=== PATIENT | male | born 1960 | race Caucasian/White ===

== ENCOUNTER 2022-07-13 21:18 | Inpatient (IN) | payer MEDICARE, SELFPAY ==
[2022-07-13 21:18] VITALS: BP 153/102; PULSE 123; RESP 16; TEMP 36.7; O2SAT 97; BMI 33.9
--- NOTE | 2022-07-13 21:44 | XRR_ITS ---
PROCEDURE INFORMATION: Exam: XR Chest Exam date and time: 07/13/2022 10:06 PM Age: 61 years old Clinical indication: Other: Behavioral health; Additional info: Psychiatric symptoms TECHNIQUE: Imaging protocol: Radiologic exam of the chest. Views: 1 view. COMPARISON: No relevant prior studies available. FINDINGS: Tubes, catheters and devices: Spinal stimulator device demonstrated. Lungs: Linear atelectasis at the right lung base. No consolidative pulmonary infiltrate noted. Pleural spaces: No pleural effusion. No pneumothorax. Heart/Mediastinum: No cardiomegaly. Vasculature: The thoracic aorta is atherosclerotic. Bones/joints: Acute fracture of the right 2nd posterior rib. No additional acute osseous abnormality. XR/XR chest 1V portable [id number] IMPRESSION: 1. Acute fracture of the right 2nd posterior rib. No associated pneumothorax. 2. Linear atelectasis at the right lung base. No consolidative pulmonary infiltrate noted.
--- NOTE | 2022-07-13 21:44 | ECG_ITS ---
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 Measurements Intervals [place] Rate: 124 P: 46 OK: 141 QRS: 23 QRSD: 72 T: 44 QT: 315 QTc: 453 Interpretive Statements SINUS TACHYCARDIA WITH OCCASIONAL SUPRAVENTRICULAR PREMATURE COMPLEXES No previous ECG available for comparison Electronically Signed On 07-14-2022 15:17:01 LEAF SORTER by Bon Pinedo M.D. [id number]
[2022-07-13 22:32] LABS: Basophils # 0.1 10^3/uL (0.0-0.1); Basophils % 0.5 %; Eosinophils % 0.1 %; Hematocrit 47.2 % (42.0-52.0); Hemoglobin 15.8 g/dL (11.7-16.6); Lymphocytes # 2.3 10^3/uL (0.8-4.8); Lymphocytes % 16.4 %; Mean Corpuscular HGB Conc 33.5 g/dL (30.0-36.0); Mean Corpuscular Hemoglobin 33.5 pg (28.0-34.0); Mean Platelet Volume 9.2 fL (7.4-10.4); Monocytes # 0.6 10^3/uL (0.2-0.9); Monocytes % 4.6 %; Neutrophils # 10.96 10^3/uL (1.8-7.7); Nucleated Red Blood Cells % 0 %; Platelet Count 322 10^3/cmm (130-400); Red Blood Count 4.72 10^6/uL (4.1-5.3); Red Cell Distribution Width 14.7 % (12.1-15.1); White Blood Count 14.1 10^3/uL (4.0-10.0)
[2022-07-13 22:43] LABS: SARS Covid-2 Antigen negative (Negative)
[2022-07-13 23:01] LABS: Alanine Aminotransferase 12 U/L (0-41); Albumin Level 4.3 g/dL (3.5-5.2); Alcohol Level 48 mg/dL (0-10); Alkaline Phosphatase 154 U/L (40-130); Anion Gap 21.7 (5-19); Aspartate Amino Transferase 19 U/L (0-40); Blood Urea Nitrogen 8 mg/dL (8-23); Calcium 9.8 mg/dL (8.5-10.5); Carbon Dioxide 21 mmol/L (22-29); Chloride 96 mmol/L (98-107); Glucose 90 mg/dL (65-115); Osmolality Calculated 278 mOsm/kg (285-295); Potassium 3.7 mmol/L (3.5-5.1); Salicylate 5.8 mg/dL (3-10); Sodium 135 mmol/L (136-145); Thyroid Stimulating Hormone 1.85 uIU/mL (0.27-4.20); Total Bilirubin 0.9 mg/dL (0.15-1.2); Total Protein 8.3 g/dL (6.6-8.7)
--- NOTE | 2022-07-13 23:04 | PC.NURSE ---
Pt resting quietly. In HB at this time. Continues to be calm and cooperative.
[2022-07-13 23:06] LABS: Acetaminophen < 5.0 ug/mL (10-30)
[2022-07-13 23:16] LABS: Add Urine Microscopic? YES; Bilirubin Urine Neg (Negative); Blood Urine Neg (Negative); Glucose Urine UA Norm (Normal); Ketones Urine 1+ (Negative); Leukocyte Esterase Urine 1+ (Negative); Nitrate Urine Negative (Negative); Protein Urine Trace (Negative); Urine Appearance Clear (CLEAR); Urine Color Yellow (Yellow); Urobilinogen Urine 1 mg/dL (Negative); pH Urine 5 (5-7)
[2022-07-13 23:18] LABS: Add Urine Culture? No; Amphetamines Screen Urine Negative (Negative); Bacteria Urine TRACE /hpf; Barbiturates Screen Urine Negative (Negative); Benzodiazepines Screen Urine Positive (Negative); Cocaine Screen Urine Negative (Negative); Mucus Urine 3+ /hpf; Opiate Screen Urine Negative (Negative); PCP Screen Urine Negative (Negative); RBC Urine 0-4 /hpf (0-2); Squamous Epithelial Cell Urine 0-4 /hpf (0-5); THC Screen Urine Positive (Negative)
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
[2022-07-14] VITALS (7 sets, daily range): BP systolic 116–138; BP diastolic 62–84; PULSE 128–158; RESP 16–20; TEMP 36.8–36.9; O2SAT 93–99
[2022-07-14] MEDS: LORazepam 2 mg Tablet PO ×3 (00:25→20:52)
--- NOTE | 2022-07-14 02:05 | PC.NURSE ---
Pt moved to room 7. Items removed from room. Tech placed for 1-1 sitter.
[2022-07-14] MEDS: OLANZapine 5 mg ODT PO (03:59)
--- NOTE | 2022-07-14 08:06 | PC.NURSE ---
pt states he is no longer SI, states he had a hard day yesterday but is not having active suicidal thoughts. pt is calm and appropriate
--- NOTE | 2022-07-14 08:07 | PC.NURSE ---
Administered Gabapentin 300MG 3 tabs from pts home medication in belongings bag per physician Navarro
[2022-07-14 09:41] LABS: Adenovirus Not Detected (NOT DETECT); Chlamydia Pneumoniae Not Detected (NOT DETECT); Coronavirus 229E,HKU1,NL63,OC4 Not Detected (NOT DETECT); Human Metapneumovirus Not Detected (NOT DETECT); Human Rhinovirus/Enterovirus Not Detected (NOT DETECT); Influenza A Not Detected (NOT DETECT); Influenza A H1 Not Detected (NOT DETECT); Influenza A H1-2009 Not Detected (NOT DETECT); Influenza A H3 Not Detected (NOT DETECT); Influenza B Not Detected (NOT DETECT); Mycoplasma Pneumoniae Not Detected (NOT DETECT); Parainfluenza Virus Type 1 Not Detected (NOT DETECT); Parainfluenza Virus Type 2 Not Detected (NOT DETECT); Parainfluenza Virus Type 3 Not Detected (NOT DETECT); Parainfluenza Virus Type 4 Not Detected (NOT DETECT); Respiratory Syncytial Virus A Not Detected (NOT DETECT); Respiratory Syncytial Virus B Not Detected (NOT DETECT); SARS-COV-2 Not Detected (NOT DETECT)
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
[2022-07-14] MEDS: gabapentin 300 mg Capsule 900 MG PO (20:53)
[2022-07-14] MEDS: trazodone 50 mg Tablet PO (21:15)
[2022-07-14] MEDS: loperamide 2 mg Capsule PO (22:10)
[2022-07-15 06:00] VITALS: BP 123/75; PULSE 153; RESP 18; TEMP 37.1; O2SAT 96
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
[2022-07-15] MEDS: gabapentin 300 mg Capsule 900 MG PO ×3 (08:36→21:04)
[2022-07-15] MEDS: folic acid 1 mg Tablet PO (08:36)
[2022-07-15] MEDS: thiamine 100 mg Tablet PO (08:36)
[2022-07-15] MEDS: multivitamin therapeutic Tablet 1 TAB PO (08:36)
[2022-07-15] MEDS: LORazepam 2 mg Tablet PO (08:42)
--- NOTE | 2022-07-15 09:23 | ECG_ITS ---
[facility] Test Date: 2022-07-15 Pat Name: Obey Regan Department: Room: 154 Gender: Male Signaling Project Engineer: : 1960 Requested By: Jace Peck Order Number: [id number] Kathy MD: Bon Pinedo M.D. Measurements Intervals [place] Rate: 143 P: 48 [place]: 125 QRS: 19 QRSD: 74 T: 45 QT: 272 QTc: 421 Interpretive Statements SINUS TACHYCARDIA Compared to ECG 07/13/2022 22:15:27 No significant changes Electronically Signed On 07-15-2022 17:30:19 PEANUT PICKER by Bon Pinedo M.D. [id number]
--- NOTE | 2022-07-15 09:48 | PM.CONSULT ---
Providers/Reason For Consult Consulting Physician/Specialty*: Jace Osorio MD, hospitalist Reason for Consult*: Tachycardia Requesting Physician: Dr. Kc Attending Physician: Sriram Kc MD History of Present Illness History of Present Illness Obey Regan is a 61 year old male who presented to the emergency department on the , with suicidal ideation. He admitted to drinking quite a bit of alcohol. He reports he feels weak. He states he has a cough on occasion, and can occasionally feel shortness of breath. He has not had any chest discomfort. Heart rate was 120s on admission, and there was concern it was 153 this morning on vitals. Patient denies any palpitations. He reports no leg pain. He reports no fevers. He was found to have a rib fracture on admission that patient was not aware of. Review of Systems General: Reports: 10 or more systems reviewed and unremarkable except in HPI and below Const: Reports: malaise; Denies: fever(s) Eyes: Denies: change in vision ENMT: Denies: throat pain Card: Denies: chest pain or palpitations Resp: Reports: dyspnea and productive cough GI: Reports: diarrhea; Denies: abdominal pain : Denies: flank pain Musc: Denies: neck pain Skin/Breast: Denies: rash Neuro: Denies: headache(s) Psych: Reports: anxiety and depression Endo: Denies: polyuria Jose/Lymph: Denies: easy bruising All/Imm: Denies: urticaria Medications/Allergies Home Medications Medication Instructions Recorded Confirmed Last Taken Type [id number]-[id number]-[id number] 250 2 tab PO Q6H PRN Headache 07/14/22 07/14/22 Unknown History mg-250 mg-65 mg tablet (Excedrin Migraine) gabapentin 300 mg capsule 900 mg PO TID 07/14/22 07/14/22 Unknown History Allergies Allergy/AdvReac Type Severity Reaction Status Date / Time No Known Allergies Allergy Verified 07/14/22 02:36 Current Medications Generic Name Dose Route Start Last Admin Trade Name Freq PRN Reason Stop Dose Admin Folic Acid 1 mg 07/15/22 09:00 07/15/22 08:36 Folic Acid 1 Mg Tablet PO 1 mg DAILY SHONNA Administration Gabapentin 900 mg 07/14/22 21:00 07/15/22 08:36 Gabapentin 300 Mg Capsule PO 900 mg TID SHONNA Administration Loperamide HCl 2 mg 07/14/22 02:35 07/14/22 22:10 Loperamide 2 Mg Capsule PO 2 mg Q6H PRN Administration DIARRHEA Lorazepam 2 mg 07/14/22 20:17 07/15/22 08:42 Lorazepam 2 Mg Tablet PO 2 mg PROTOCOL PRN Administration WITHDRAWAL Protocol Multivitamins Therapeutic 1 tab 07/15/22 09:00 07/15/22 08:36 Multivitamin Therapeutic Tablet PO 1 tab DAILY SHONNA Administration Olanzapine 5 mg 07/14/22 02:35 07/14/22 03:59 Olanzapine 5 Mg Odt PO 5 mg Q4H PRN Administration Agitation/Psychosis Thiamine Mononitrate 100 mg 07/15/22 09:00 07/15/22 08:36 Thiamine 100 Mg Tablet PO 100 mg DAILY SHONNA Administration Trazodone HCl 50 mg 07/14/22 02:35 07/14/22 21:15 Trazodone 50 Mg Tablet PO 50 mg BEDTIME PRN Administration SLEEP PFSH Acute PFSH: Medical History (Updated 07/15/22 @ 09:58 by Jace Osorio MD) Chronic neuropathic pain Family History (Updated 07/15/22 @ 09:54 by Jace Osorio MD) Other CAD (coronary artery disease) Social History (Updated 07/15/22 @ 09:55 by Jace Osorio MD) Smoking and tobacco status: current every day smoker Alcohol intake: current Other PFSH information: Supplemental PFSH Information: History of nerve stimulator implantation Vitals/I&O/Wt Last Vital Signs Temp 98.7 F 07/15/22 06:00 Pulse 153 H 07/15/22 06:00 Resp 18 07/15/22 06:00 BP 123/75 07/15/22 06:00 Pulse Ox 96 07/15/22 06:00 O2 Del Method 07/14/22 18:34 Weight last 48 hrs Weight 113.398 kg Physical Exam Narrative: General exam is a white male, no distress HEENT: Atraumatic normocephalic. Oropharynx clear. Mucous membranes dry. Neck supple no lymphadenopathy thyromegaly Cardiovascular tachycardic, no murmur Lungs coarse breath sounds at the base, particularly right lung Abdomen is soft, positive bowel sounds. No obvious organomegaly exam is deferred Extremities no cyanosis clubbing or edema. Some varicosities are noted, more on the left Skin no rash Neuro no obvious focal deficits Data 07/13/22 21:45 07/13/22 21:45 Other Labs: Chest x-ray which I reviewed from admission demonstrates fracture right second posterior rib and some linear atelectasis/infiltrate EKG I had performed currently demonstrates a heart rate of around 140, normal axis. This is consistent with sinus tachycardia. LFTs on admission largely normal with exception of alk phos of 154. TSH was checked and 1.85 Urinalysis 5-10 whites, 0-4 reds. Negative nitrates and trace bacteria Urine drug screen was positive for THC, benzodiazepines. Alcohol level 48 Viral panel including COVID-negative A&P Assessment and plan (1) Tachycardia: Concern of tachycardia. Certainly this could be from withdrawal, although his blood pressure is not elevated currently. He has some element of dehydration and was self reports he has not been drinking well since being admitted. I am also concerned with development of pneumonia as the patient had a right posterior rib fracture and currently has an abnormal pulmonary exam with coarse breath sounds on the right. He has not demonstrated any fevers. He is not hypoxic With his chronic neuropathy, and presumably reduced mobility, will need to explore any possibility of thrombus as well. He has not had any chest discomfort, and is not hypoxic. He is not hypotensive. At this point I will order chest x-ray as well as stat laboratory. Laboratory will include CBC, CMP, dimer. Hopefully this can be expedited quickly as it is ordered stat. Encourage p.o. intake from the patient Recheck vital signs as soon as laboratory comes in, sooner for any decompensation After the above is evaluated expeditiously, will determine if patient can continue to be cared for at the neuropsychiatric unit. Plan Thank you for this consultation Consult Attestations Medical Necessity Statement: As per primary Diagnoses Tachycardia R00.0 Time Spent (min) 49
--- NOTE | 2022-07-15 09:52 | XR_ITS ---
WS: [id number] Portable AP by chest, 07/15/2022 Clinical Data: abnormal vital signs Comparison: None. Findings: There is patchy opacity over the surface the left diaphragm which may represent atelectasis and/or minimal pneumonia. The linear atelectasis in the right lung has almost totally resolved. No n odules, masses or effusions are seen. The heart is normal. The pulmonary vascularity is not increased . No pneumothorax is seen. The aortic arch and descending thoracic aorta show minimal calcification a nd tortuosity. There are epidural stimulator leads overlying the lower thoracic space. The right seco nd rib fracture is obscured by overlying bone. XR/XR chest 1V portable [id number] Impression: 1. Development of patchy opacity in left lower lobe which could represent atele ctasis and/or pneumonia. 2. Atherosclerosis.
[2022-07-15 10:35] LABS: Basophils # 0.1 10^3/uL (0.0-0.1); Basophils % 0.6 %; Eosinophils # 0.1 10^3/uL (0.0-0.8); Eosinophils % 0.7 %; Hematocrit 40.9 % (42.0-52.0); Hemoglobin 13.8 g/dL (11.7-16.6); Lymphocytes % 21.6 %; Mean Corpuscular HGB Conc 33.7 g/dL (30.0-36.0); Mean Corpuscular Hemoglobin 34.2 pg (28.0-34.0); Mean Corpuscular Volume 101.5 fl (80-94); Monocytes # 0.7 10^3/uL (0.2-0.9); Monocytes % 7.9 %; Neutrophils # 6.45 10^3/uL (1.8-7.7); Neutrophils % 68.8 %; Nucleated Red Blood Cells % 0 %; Platelet Count 215 10^3/cmm (130-400); Red Blood Count 4.03 10^6/uL (4.1-5.3); Red Cell Distribution Width 14.6 % (12.1-15.1); White Blood Count 9.4 10^3/uL (4.0-10.0)
[2022-07-15 10:37] LABS: D Dimer 2.49 ug/mIFEU (0-0.59)
[2022-07-15 10:43] LABS: Alanine Aminotransferase < 5 U/L (0-41); Albumin Level 3.2 g/dL (3.5-5.2); Alkaline Phosphatase 112 U/L (40-130); Anion Gap 14.7 (5-19); Aspartate Amino Transferase 13 U/L (0-40); Blood Urea Nitrogen 12 mg/dL (8-23); Calcium 8.9 mg/dL (8.5-10.5); Carbon Dioxide 25 mmol/L (22-29); Chloride 100 mmol/L (98-107); Globulin 3.5 g/dL (1.3-4.6); Glomerular Filtration Rate 98.6 mL/min (90-130); Glucose 118 mg/dL (65-115); Magnesium 1.7 mg/dL (1.7-2.3); Osmolality Calculated 283 mOsm/kg (285-295); Potassium 3.7 mmol/L (3.5-5.1); Sodium 136 mmol/L (136-145); Total Bilirubin 0.8 mg/dL (0.15-1.2); Total Protein 6.7 g/dL (6.6-8.7)
[2022-07-15 11:08] VITALS: BP 136/77; PULSE 117; RESP 18; TEMP 36.8; O2SAT 90
--- NOTE | 2022-07-15 11:19 | CT_ITS ---
WS: [id number] CT CHEST ANGIOGRAPHY WITH REFORMATS HISTORY: elevated dimer TECHNIQUE: Contiguous axial images are obtained through the chest during arterial injection of intrav enous contrast. Images are reconstructed to evaluate the pulmonary arteries. MIP imaging also reviewe d. All CT scans at [facility] use at least one of these dose optimization techniques: automat ed exposure control; mA and/or kV adjustment per patient size (includes targeted exams where dose is matched to clinical indication); or iterative reconstruction. CONTRAST: Omnipaque 350; 190 mL IV. DLP: 160.60 mGy.cm COMPARISON: None available. Limited but adequate central opacification of the pulmonary arteries. Nonocclusive thrombus proximal RIGHT lower lobe pulmonary artery with extension into the segmental branches. No occlusive thrombus. Pulmonary artery is mildly dilated. Mild atherosclerosis aorta. Scattered calcifications and intimal thickening. No RIGHT heart strain. Mild enlargement of the heart. Small pericardial effusion versus pericardial thickening. Small medias tinal and hilar lymph nodes. Mild diffuse thickening of the esophagus. No pneumonia or pulmonary nodu les. Subsegmental atelectasis at the lingula and RIGHT lung base. No pleural effusion. Nodular surface of the liver consistent with cirrhosis. Mildly contracted gallbladder with cholelithi asis. LEFT adrenal low-attenuation nodule measures 2.0 cm. Mild adjacent inflammation involving the s uperior poles of each kidney. Dorsal column stimulator midthoracic region. CT/CT angio chest PE protcl [id number] IMPRESSION: 1. Nonocclusive thrombus RIGHT lower lobe pulmonary artery. 2. No pneumonia. 3. Mild cardiomegaly. 4. Small pericardial effusion. 5. LEFT adrenal adenoma. 6. Perinephric stranding around the superior pole of each kidney. 7. Mild diffuse esophagitis. 8. Cirrhosis. Notified Jace Osorio MD at 07/15/2022 1:02 PM.
[2022-07-15] MEDS: iohexol 350 mg/mL 500 mL Btl (per mL) IV (12:15)
[2022-07-15] MEDS: enoxaparin 120 mg/0.8 mL Syringe 110 MG SUBCUT (14:00)
[2022-07-15] MEDS: levofloxacin-dextrose 5 % 750 MG/150 ML PREMIX 100 MG IV (14:00)
[2022-07-15 16:00] VITALS: BP 134/85; PULSE 120; RESP 18; TEMP 37.2; O2SAT 95
[2022-07-15] MEDS: OLANZapine 5 mg ODT PO (17:42)
[2022-07-15 20:00] VITALS: BP 131/68; PULSE 127; RESP 16; TEMP 37.2; O2SAT 90
[2022-07-15] MEDS: hyDROXYzine 25 mg Capsule 50 MG PO (21:05)
[2022-07-15] MEDS: trazodone 50 mg Tablet PO (21:05)
[2022-07-15 22:00] VITALS: PULSE 126
--- NOTE | 2022-07-15 23:15 | PC.NURSE ---
Bedside report completed with MARIANO Coronado at beginning of shift.
[2022-07-16] VITALS (13 sets, daily range): BP systolic 118–185; BP diastolic 64–89; PULSE 72–125; RESP 15–18; TEMP 36.7–37.3; O2SAT 91–98
[2022-07-16] MEDS: enoxaparin 120 mg/0.8 mL Syringe 110 MG SUBCUT ×2 (01:06→14:19)
[2022-07-16] MEDS: nicotine 21 mg Patch 1 PATCH TRANSDERMA (01:24)
[2022-07-16 04:52] LABS: Basophils # 0.1 10^3/uL (0.0-0.1); Basophils % 0.6 %; Eosinophils # 0.2 10^3/uL (0.0-0.8); Eosinophils % 2.2 %; Hematocrit 40.1 % (42.0-52.0); Hemoglobin 13.1 g/dL (11.7-16.6); Lymphocytes # 2.5 10^3/uL (0.8-4.8); Lymphocytes % 28.5 %; Mean Corpuscular HGB Conc 32.7 g/dL (30.0-36.0); Mean Corpuscular Hemoglobin 33.2 pg (28.0-34.0); Mean Corpuscular Volume 101.5 fl (80-94); Monocytes # 0.6 10^3/uL (0.2-0.9); Monocytes % 7.2 %; Neutrophils # 5.25 10^3/uL (1.8-7.7); Neutrophils % 60.9 %; Nucleated Red Blood Cells % 0 %; Platelet Count 213 10^3/cmm (130-400); Red Blood Count 3.95 10^6/uL (4.1-5.3); Red Cell Distribution Width 14.6 % (12.1-15.1); White Blood Count 8.6 10^3/uL (4.0-10.0)
[2022-07-16 05:13] LABS: Blood Urea Nitrogen 10 mg/dL (8-23); Calcium 9.1 mg/dL (8.5-10.5); Carbon Dioxide 27 mmol/L (22-29); Chloride 100 mmol/L (98-107); Glucose 107 mg/dL (65-115); Magnesium 1.8 mg/dL (1.7-2.3); Osmolality Calculated 286 mOsm/kg (285-295); Sodium 138 mmol/L (136-145)
--- NOTE | 2022-07-16 05:22 | PC.NURSE ---
Patient c/o upper chest and neck pain. Dr. Osorio notified. Ordered to give PRN Tylenol.
[2022-07-16] MEDS: acetaminophen 325 mg Tablet 650 MG PO (05:24)
--- NOTE | 2022-07-16 06:05 | PC.NURSE ---
Patient currently sleeping with eyes closed. Will continue to monitor and reassess pain.
--- NOTE | 2022-07-16 06:19 | P.PN_ITS ---
Subjective Subjective: Patient reports some pain when he breathes deep. Otherwise without complaints. Heart rate this morning around 110-115, improved from yesterday. He does not complain of shortness of breath at rest. He is not requiring oxygen. Medications: Reviewed: Yes Vitals/I&O/Wt Last Vital Signs Temp 99 F 07/16/22 04:00 Pulse 125 H 07/16/22 04:00 Resp 17 07/16/22 04:00 BP 144/87 07/16/22 04:00 Pulse Ox 94 07/16/22 04:00 O2 Del Method 07/16/22 02:52 07/15/22 07/15/22 07/16/22 14:59 22:59 06:59 Intake Total 150 / 150 800 / 950 Output Total 1000 / 1000 Balance 150 / 150 -200 / -50 Physical Exam Narrative: General exam is a white male, no distress Neck supple no lymphadenopathy thyromegaly Cardiovascular tachycardic, no murmur Lungs coarse breath sounds at the base, particularly right lung Abdomen is soft, positive bowel sounds. No obvious organomegaly Extremities no cyanosis clubbing or edema. Some varicosities are noted, more on the left Skin no rash Data 07/16/22 04:19 07/16/22 04:19 Other Labs: Chest x-ray demonstrated left-sided infiltrate yesterday which I reviewed CTA demonstrated atelectasis, less likely pneumonia, nonocclusive thrombus right lower lobe pulmonary artery, other findings as noted in the report A&P Assessment and plan (1) Tachycardia: Concern of tachycardia. Certainly this could be from withdrawal, although his blood pressure is not elevated currently. He has some element of dehydration and was self reports he has not been drinking well since being admitted. I am also concerned with development of pneumonia as the patient had a right posterior rib fracture and currently has an abnormal pulmonary exam with coarse breath sounds on the right. He has not demonstrated any fevers. He is not hypoxic With his chronic neuropathy, and presumably reduced mobility, will need to explore any possibility of thrombus as well. He has not had any chest discomfo rt, and is not hypoxic. He is not hypotensive. At this point I will order chest x-ray as well as stat laboratory. Laboratory will include CBC, CMP, dimer. Hopefully this can be expedited quickly as it is ordered stat. Patient was removed from neuropsychiatric unit on July 15, with abnormal v ital signs and CTA pending. He was found to have a pulmonary embolism on CTA. I am still concerned pneumonia might be present although CT believes this is more than likely atelectasis. (2) Pulmonary embolism: Continue Lovenox Monitor for vital signs to return to normal Await echocardiogram to check for any evidence of strain With significant clinical improvement, will consider transition to Eliquis soon. This might happen tonight or tomorrow morning Repeat CBC tomorrow along with CMP (3) Pneumonia: Continue Levaquin currently (4) Alcohol withdrawal: Continue CIWA protocol Plan Suicidal ideation. Psychiatric on board. One-to-one sitter Attestations Medical Necessity Statement*: Needs continued hospitalization for treatment of pulmonary embolism with anticoagulation Diagnoses Tachycardia R00.0 Pulmonary embolism I26.99 Pneumonia J18.9 Alcohol withdrawal F10.939 Time Spent (min) 25
[2022-07-16] MEDS: ipratropium-albuterol 3 mL Neb INHALATION ×3 (08:08→20:46)
[2022-07-16] MEDS: thiamine 100 mg Tablet PO (09:47)
[2022-07-16] MEDS: gabapentin 300 mg Capsule 900 MG PO ×3 (09:47→19:21)
[2022-07-16] MEDS: folic acid 1 mg Tablet PO (09:47)
[2022-07-16] MEDS: multivitamin therapeutic Tablet 1 TAB PO (09:47)
--- NOTE | 2022-07-16 13:12 | USCV_ITS ---
Obey Regan Age: 61 Gender: M : 1960 Exam Date: 07/16/2022 17:12 Ordering Phys: Jace Osorio MD Technologist: DEN [place] [facility] [place]: PE BP: 128 / 64 HR: 106 Rhythm: Sinus Technical Quality: Poor secondary to COPD MEASUREMENTS (Male / Female) Normal Values 2D ECHO LVOT Diameter 2.0 cm LV Ejection Fraction MOD 2C 54.3 % LV Ejection Fraction 2C AL 53.9 % LA Diameter 3.8 cm LA Width 3.1 cm LA Height 5.4 cm RA Width 3.0 cm RA Height 5.4 cm Aorta at Sinotubular Diameter 2.8 cm IVC Diameter 2.2 cm M-MODE Aortic Annulus Diameter 3.1 cm LA Ao Ratio MM 1.2 MV E Point Septal Separation 0.6 cm DOPPLER AV Peak Velocity 132.0 cm/s LVOT Peak Velocity 111.0 cm/s AV Area Cont Eq vti 3.1 cm squared AV Area Cont Eq pk 2.7 cm squared MV Peak Velocity 115.0 cm/s MV Area PHT 5.0 cm squared Mitral E to A Ratio 0.4 MV E' Velocity 26.0 cm/s Mitral E to MV E' Ratio 5.4 Mitral E to LV E' Lateral Ratio 5.6 Mitral E to LV E' Septal Ratio 5.2 TR Peak Velocity 167.1 cm/s TR Peak Gradient 11.2 mmHg TR Mean Velocity 142.7 cm/s TR Mean Gradient 8.1 mmHg TR Velocity Time Integral 32.7 cm TV Peak E Velocity 43.0 cm/s Right Atrial Pressure 3.0 mmHg Pulmonary Artery Systolic Pressu 14.2 mmHg PV Peak Velocity 113.0 cm/s RV Acceleration Time 0.1 s RV Ejection Time 0.2 s RV AcT/ET 0.5 FINDINGS Left Ventricle Normal left ventricular size and systolic function, EF 59 %. Segmental wall motion analysis difficult. No gross abnormalities noted.Grade I/IV diastolic dysfunction (abnormal relaxation filling pattern), normal to mildly elevated filling pressures. Right Ventricle The right ventricle possibly of normal size and ejection fraction Right Atrium Right atrium not well visualized. Left Atrium Possibly of normal size Mitral Valve The valve morphology could not be delineated well Aortic Valve The valve morphology could not be delineated well Tricuspid Valve Trace tricuspid valve regurgitation. Possibly normal PA pressure Pulmonic Valve Pulmonic valve not well visualized. Pericardium No significant pericardial effusion Aorta Normal aortic annulus size. IVC Inferior vena cava not visualized. CONCLUSIONS Normal left ventricular size and systolic function, EF 59 %. Segmental wall motion analysis difficult. No gross abnormalities noted. Grade I/IV diastolic dysfunction (abnormal relaxation filling pattern), normal to mildly elevated filling pressures. Possibly normal chamber sizes Right ventricle appears to be normal size ejection fraction. Could not be visualized well. No significant pericardial effusion. Technically difficult study because of poor ultrasonic window Dr Melchor Gold MD FACC (Electronically Signed) Final Date: 18 July 2022 10:05 S
[2022-07-16] MEDS: levofloxacin-dextrose 5 % 750 MG/150 ML PREMIX 100 MG IV (14:19)
[2022-07-16] MEDS: oxyCODONE 5 mg IR Tab/Cap PO (16:05)
[2022-07-16] MEDS: nicotine 2 mg Gum BUCCAL (16:11)
--- NOTE | 2022-07-16 16:32 | P.NPUPN_ITS ---
Subjective NPU Subjective: Patient presented today reporting that he is doing better with the medications and treatments he is receiving. He was very thankful and appreciative of the care he received. He reports that he had not been taking p.o. but did not really attribute it to anything. He does understand he had br oken ribs, and pneumonia and a PE. We discussed the fact that he would stay on the floor until he was medically cleared by the primary medical team on [facility]. Then he would return to the neuropsychiatric unit. He denies any side effects from these medications. Mental Status Exam MSE Comments: This is a obese older white male in hospital gown with adequate grooming and eye contact. No abnormal movements except for mild psychomotor retardation. Notable swelling in his left lower leg without any swelling in the right leg. Cooperative with exam in mild distress. Speech was decreased rate and volume. Mood described as a lot better. Affect congruent. Thought process organized. Thought content: Patient denied current suicidal or homicidal ideation, there were no delusions reported or noted, he denied any auditory or visual hallucinations. Attention and concentration were intact and memory appeared mostly reliable but none were formally tested. He is alert and oriented x3. Insight and judgment limited impulse control limited. Vitals/I&O/Wt Last Vital Signs Temp 98.0 F 07/16/22 16:31 Pulse 112 H 07/16/22 16:31 Resp 15 07/16/22 16:31 BP 128/64 07/16/22 16:31 Pulse Ox 96 07/16/22 16:31 O2 Del Method 07/16/22 16:31 07/16/22 07/16/22 07/17/22 14:59 22:59 06:59 Intake Total 0 / 0 Output Total Balance 0 / 0 Data NPU 07/17/22 05:30 07/17/22 05:30 Micro: Microbiology 07/15/22 21:16 Gram Stain - Final Sputum - Expectorated Sputum Microbiology 07/15/22 21:16 Sputum - Expectorated Sputum Gram Stain - Final A&P Assessment and plan (1) Alcohol use disorder, severe, dependence: (2) Alcohol withdrawal: (3) Depressive disorder: (4) Anxiety disorder: Plan This is a 66 alcohol use and anxiety and a more recent history of depression and suicidal thinking who presents with suicidal thoughts and some lab abnormalities including elevated pulse in the face of normal blood pressure. 1. Continue current medication. Start Lexapro 10 mg p.o. every morning. 2. Initiate/continue CIWA protocol. 3. Continue one-to-one while on MedSurg. 4. Return to NPU once medically cleared 5. We will continue to follow. 6. Encourage sober living treatment after discharge at the highest level of care to which he is willing to commit. Involuntary Hold Information 96 Hour Hold: 96 Hour Involuntary Admission: No Attestations NPU Medical Necessity Statement*: Inpatient hospitalization is medically necessary and the clinically appropriate intervention at this time. We will initiate/monitor medications and make changes as indicated. Likely length of stay 3-5 days. Coding Level of Care Code Acute Code for [facility] Fwd Diagnoses Alcohol use disorder, severe, dependence F10.20 Alcohol withdrawal F10.939 Depressive disorder F32.A Anxiety disorder F41.9
[2022-07-16] MEDS: hyDROXYzine 25 mg Capsule 50 MG PO (19:20)
[2022-07-17] VITALS (9 sets, daily range): BP systolic 124–157; BP diastolic 74–89; PULSE 88–115; RESP 14–20; TEMP 36.6–37.1; O2SAT 91–95
[2022-07-17] MEDS: enoxaparin 120 mg/0.8 mL Syringe 110 MG SUBCUT (02:02)
[2022-07-17 06:04] LABS: Basophils % 0.5 %; Eosinophils # 0.3 10^3/uL (0.0-0.8); Eosinophils % 4.2 %; Hematocrit 39.3 % (42.0-52.0); Hemoglobin 12.8 g/dL (11.7-16.6); Lymphocytes # 1.9 10^3/uL (0.8-4.8); Lymphocytes % 25.7 %; Mean Corpuscular HGB Conc 32.6 g/dL (30.0-36.0); Mean Corpuscular Hemoglobin 32.9 pg (28.0-34.0); Monocytes # 0.5 10^3/uL (0.2-0.9); Monocytes % 7.1 %; Neutrophils # 4.64 10^3/uL (1.8-7.7); Neutrophils % 62.2 %; Nucleated Red Blood Cells % 0 %; Platelet Count 208 10^3/cmm (130-400); Red Blood Count 3.89 10^6/uL (4.1-5.3); Red Cell Distribution Width 14.6 % (12.1-15.1); White Blood Count 7.5 10^3/uL (4.0-10.0)
[2022-07-17 06:29] LABS: Alanine Aminotransferase 7 U/L (0-41); Albumin Level 3.2 g/dL (3.5-5.2); Alkaline Phosphatase 115 U/L (40-130); Anion Gap 14.2 (5-19); Aspartate Amino Transferase 15 U/L (0-40); Blood Urea Nitrogen 10 mg/dL (8-23); Calcium 8.8 mg/dL (8.5-10.5); Carbon Dioxide 28 mmol/L (22-29); Chloride 101 mmol/L (98-107); Globulin 3.3 g/dL (1.3-4.6); Glucose 124 mg/dL (65-115); Osmolality Calculated 288 mOsm/kg (285-295); Potassium 4.2 mmol/L (3.5-5.1); Sodium 139 mmol/L (136-145); Total Bilirubin 0.4 mg/dL (0.15-1.2); Total Protein 6.5 g/dL (6.6-8.7)
[2022-07-17] MEDS: ipratropium-albuterol 3 mL Neb INHALATION ×2 (08:32→13:38)
[2022-07-17] MEDS: escitalopram 10 mg Tablet PO (09:44)
[2022-07-17] MEDS: folic acid 1 mg Tablet PO (09:44)
[2022-07-17] MEDS: multivitamin therapeutic Tablet 1 TAB PO (09:45)
[2022-07-17] MEDS: thiamine 100 mg Tablet PO (09:45)
[2022-07-17] MEDS: gabapentin 300 mg Capsule 900 MG PO ×3 (09:46→21:28)
[2022-07-17] MEDS: nicotine 21 mg Patch 1 PATCH TRANSDERMA (09:53)
[2022-07-17] MEDS: oxyCODONE 5 mg IR Tab/Cap PO (09:53)
--- NOTE | 2022-07-17 11:22 | P.PN_ITS ---
Subjective Subjective: States he is still coughing, can have some phlegm. He is now finally able to take deeper breaths which he says was unable to do previously. Medications: Reviewed: Yes Vitals/I&O/Wt Last Vital Signs Temp 97.8 F 07/17/22 08:00 Pulse 101 H 07/17/22 08:33 Resp 18 07/17/22 08:33 BP 154/85 07/17/22 08:00 Pulse Ox 95 07/17/22 08:33 O2 Del Method 07/17/22 08:33 07/16/22 07/17/22 07/17/22 22:59 06:59 14:59 Intake Total 270 / 270 360 / 630 240 / 240 Output Total 200 / 200 Balance 270 / 270 160 / 430 240 / 240 Physical Exam Const: COMMON NORMALS: patient oriented x3 and alert GENERAL APPEARANCE: cooperative ORIENTATION/CONSCIOUSNESS: Yes awake HENMT: COMMON NORMALS: oropharynx normal Neck/C-Spine: COMMON NORMALS: no JVD Resp: COMMON NORMALS: normal respiratory effort AUSCULTATION: rhonchi Cardio: COMMON NORMALS: no JVD, regular rhythm, S1 normal heart sound present, S2 normal heart sound present and No murmurs present (Cardio) RHYTHM: regular rhythm HEART SOUNDS: S1 normal heart sound present and S2 normal heart sound present GI: COMMON NORMALS: Normal to inspection, nondistended, normoactive bowel sounds present, Soft to palpation and non-tender PALPATION: Yes Soft to palpation Extremity: COMMON NORMALS: no joint enlargement and no pedal edema Neuro: COMMON NORMALS: patient oriented x3 and moves all extremities SENSO RIUM/ORIENTATION: Yes alert Skin: COMMON NORMALS: no rashes or lesions noted GENERAL SKIN EXAM: no rashes or lesions noted Data 07/17/22 05:30 07/17/22 05:30 Micro: Microbiology 07/15/22 21:16 Gram Stain - Final Sputum - Expectorated Sputum A&P Assessment and plan (1) Tachycardia: Continue treatment of PE, pneumonia. (2) Pulmonary embolism: Has not had any bleeding. Reviewed CBC, patient is tolerating anticoagulation well. Hemoglobin 12.8. Platelets noted 208,000. Maintaining blood pressure well, maintaining oxygenation on room air. Transition to oral anticoagulant. Discussed with psychiatry, will resume care on neuropsychiatric unit. I will follow-up and see him then again tomorrow. Echo still pending. Follow-up. (3) Pneumonia: Switch to oral Levaquin. Add flutter valve to assist with expectoration. Noted WBC count 7.5. He is afebrile. Heart rate with improvement, 101. (4) Alcohol withdrawal: Continue CIWA protocol Plan Suicidal ideation. Discussed with psychiatry, transfer back to neuropsychiatric unit to resume care there. Continue one-to-one sitter Attestations Medical Necessity Statement*: Continue psychiatric care assessment management with suicidal ideation, continued treatment of PE, pneumonia. Diagnoses Tachycardia R00.0 Pulmonary embolism I26.99 Pneumonia J18.9 Alcohol withdrawal F10.939
[2022-07-17] MEDS: sucralfate 1 gm Tablet PO (11:45)
[2022-07-17] MEDS: apixaban 5 mg Tablet 10 MG PO (17:30)
[2022-07-17] MEDS: levoFLOXacin 750 mg Tablet PO (17:30)
--- NOTE | 2022-07-17 17:51 | P.NPUPN_ITS ---
Subjective NPU Subjective: Patient presented today reporting that things were going much better. The hospitalist team on [facility] has medically cleared him and is changing him over to oral medications that will be consistent with neuropsychiatric unit placement. He reports that he is hoping to be discharged by Friday in hopes that he can be helpful to his family as well as his intention of coming down to [place]. He denies any problems with any of the medications and reports he is feeling much better after treatment for the pneumonia and the PE. Mental Status Exam MSE Comments: This is a obese older white male in hospital gown with adequate grooming and eye contact. No abnormal movements except for mild psychomotor retardation. Notable swelling in his left lower leg without any swelling in the right leg. Cooperative with exam in no acute distress. Speech was decreased rate and volume. Mood described as better. Affect congruent. Thought process organized. Thought content: Patient denied current suicidal or homicidal ideation, there were no delusions reported or noted, he denied any auditory or visual hallucinations. Attention and concentration were intact and memory appeared mostly reliable but none were formally tested. He is alert and oriented x3. Insight and judgment limited impulse control limited. Vitals/I&O/Wt Last Vital Signs Temp 97.9 F 07/17/22 20:00 Pulse 100 07/17/22 20:00 Resp 17 07/17/22 20:00 BP 157/89 07/17/22 20:00 Pulse Ox 94 07/17/22 20:00 O2 Del Method 07/17/22 20:00 07/17/22 07/17/22 07/18/22 14:59 22:59 06:59 Intake Total 440 / 440 Balance 440 / 440 Data NPU 07/17/22 05:30 07/17/22 05:30 Micro: Microbiology 07/15/22 21:16 Gram Stain - Final Sputum - Expectorated Sputum Sputum Culture - Preliminary Microbiology 07/15/22 21:16 Sputum - Expectorated Sputum Gram Stain - Final 07/15/22 21:16 Sputum - Expectorated Sputum Sputum Culture - Preliminary A&P Assessment and plan (1) Alcohol use disorder, severe, dependence: (2) Alcohol withdrawal: (3) Depressive disorder: (4) Anxiety disorder: Plan This is a 66 alcohol use and anxiety and a more recent history of depression and suicidal thinking who presents with suicidal thoughts and some lab abnormalities including elevated pulse in the face of normal blood pressure. 1. Continue current medication. Started Lexapro 10 mg p.o. every morning. 2. Initiate/continue CIWA protocol. 3. Continue one-to-one while on MedSurg. 4. Return to NPU once medically cleared 5. We will continue to follow. 6. Encourage sober living treatment after discharge at the highest level of care to which he is willing to commit. Involuntary Hold Information 96 Hour Hold: 96 Hour Involuntary Admission: No Attestations NPU Medical Necessity Statement*: Inpatient hospitalization is medically necessary and the clinically appropriate intervention at this time. We will initiate/monitor medications and make changes as indicated. Likely length of stay 2-4 days. Coding Level of Care Code Acute Code for [facility] Fwd Diagnoses Alcohol use disorder, severe, dependence F10.20 Alcohol withdrawal F10.939 Depressive disorder F32.A Anxiety disorder F41.9
[2022-07-17] MEDS: hyDROXYzine 25 mg Capsule 50 MG PO (22:28)
[2022-07-18 08:32] LABS: Basophils % 0.5 %; Eosinophils # 0.4 10^3/uL (0.0-0.8); Eosinophils % 5.6 %; Hematocrit 42.7 % (42.0-52.0); Lymphocytes # 1.7 10^3/uL (0.8-4.8); Lymphocytes % 21.4 %; Mean Corpuscular HGB Conc 32.8 g/dL (30.0-36.0); Mean Corpuscular Hemoglobin 33.6 pg (28.0-34.0); Mean Corpuscular Volume 102.4 fl (80-94); Mean Platelet Volume 8.8 fL (7.4-10.4); Monocytes # 0.7 10^3/uL (0.2-0.9); Monocytes % 8.6 %; Neutrophils # 4.97 10^3/uL (1.8-7.7); Neutrophils % 63.5 %; Nucleated Red Blood Cells % 0 %; Platelet Count 195 10^3/cmm (130-400); Red Blood Count 4.17 10^6/uL (4.1-5.3); Red Cell Distribution Width 14.2 % (12.1-15.1); White Blood Count 7.8 10^3/uL (4.0-10.0)
[2022-07-18] MEDS: escitalopram 10 mg Tablet PO (09:12)
[2022-07-18] MEDS: gabapentin 300 mg Capsule 900 MG PO ×3 (09:13→22:10)
[2022-07-18] MEDS: multivitamin therapeutic Tablet 1 TAB PO (09:13)
[2022-07-18] MEDS: thiamine 100 mg Tablet PO (09:13)
[2022-07-18] MEDS: apixaban 5 mg Tablet 10 MG PO ×2 (09:13→17:33)
--- NOTE | 2022-07-18 09:34 | PC.OT ---
OT NOTE: PATIENT HAS RETURNED TO UNIT. PER PATIENT REPORTS AND NURSING CONFIRMATION: PATIENT IS ABLE TO PERFORM ALL TRANSFERS AND ADL Pam ON THE UNIT. NO FURTHER SKILLED OT REQUIRED AT THIS TIME. PATIENT WOULD HOWEVER, CONTINUE TO BENEFIT FROM GROUP TREATMENT WHILE ON NPU.
[2022-07-18] MEDS: folic acid 1 mg Tablet PO (10:49)
--- NOTE | 2022-07-18 16:29 | P.NPUPN_ITS ---
Subjective NPU Subjective: Patient presented today in the day room. He reports that he is starting to feel better and is very appreciative of the help he got in the hospital. He reports that he is eating better and sleeping fine. He endorsed a plan to connect with his daughter and assist her as he had initially planned. He denies any new or pressing issues and we discussed the plan for discharge tomorrow. Mental Status Exam MSE Comments: This is a obese older white male in hospital gown with adequate grooming and eye contact. No abnormal movements except for mild psychomotor retardation. Notable swelling in his left lower leg without any swelling in the right leg. Cooperative with exam in no acute distress. Speech was more normal rate and volume. Mood described as better. Affect congruent. Thought process organized. Thought content: Patient denied current suicidal or homicidal ideation, there were no delusions reported or noted, he denied any auditory or visual hallucinations. Attention and concentration were intact and memory appeared mostly reliable but none were formally tested. He is alert and oriented x3. Insight, judgment and impulse control improving. Vitals/I&O/Wt Last Vital Signs Temp 97.9 F 07/17/22 20:00 Pulse 100 07/17/22 20:00 Resp 17 07/17/22 20:00 BP 157/89 07/17/22 20:00 Pulse Ox 94 07/17/22 20:00 O2 Del Method 07/18/22 13:37 07/18/22 07/18/22 07/18/22 06:59 14:59 22:59 Intake Total 200 / 200 Output Total 200 / 200 Balance 0 / 0 Data NPU 07/18/22 08:21 07/17/22 05:30 Micro: Microbiology 07/15/22 21:16 Gram Stain - Final Sputum - Expectorated Sputum Sputum Culture - Final Microbiology 07/15/22 21:16 Sputum - Expectorated Sputum Gram Stain - Final 07/15/22 21:16 Sputum - Expectorated Sputum Sputum Culture - Final A&P Assessment and plan (1) Alcohol use disorder, severe, dependence: (2) Alcohol withdrawal: (3) Depressive disorder: (4) Anxiety disorder: Plan This is a 66 alcohol use and anxiety and a more recent history of depression and suicidal thinking who presents with suicidal thoughts and some lab abnormalities including elevated pulse in the face of normal blood pressure. 1. Continue current medication. Started Lexapro 10 mg p.o. every morning. 2. Initiate/continue CIWA protocol. 3. Continue one-to-one while on MedSurg. 4. Return to NPU once medically cleared 5. We will continue to follow. 6. Encourage sober living treatment after discharge at the highest level of care to which he is willing to commit. Involuntary Hold Information 96 Hour Hold: 96 Hour Involuntary Admission: No Attestations NPU Medical Necessity Statement*: Inpatient hospitalization is medically necessary and the clinically appropriate intervention at this time. We will initiate/monitor medications and make changes as indicated. Likely length of stay 1-3 days. Coding Level of Care Code Acute Code for [facility] Fwd Diagnoses Alcohol use disorder, severe, dependence F10.20 Alcohol withdrawal F10.939 Depressive disorder F32.A Anxiety disorder F41.9
[2022-07-18] MEDS: guaiFENesin 600 mg Tablet PO (17:34)
[2022-07-18] MEDS: levoFLOXacin 750 mg Tablet PO (17:34)
--- NOTE | 2022-07-18 20:09 | PM.PN ---
Subjective Subjective: Reports he is doing well. He is still coughing. Otherwise no chest pain. No trouble breathing. Discussed with him he is maintaining oxygen, blood pressure. Medications: Reviewed: Yes Vitals/I&O/Wt Last Vital Signs Temp 97.9 F 07/17/22 20:00 Pulse 100 07/17/22 20:00 Resp 17 07/17/22 20:00 BP 157/89 07/17/22 20:00 Pulse Ox 94 07/17/22 20:00 O2 Del Method 07/18/22 13:37 07/18/22 07/18/22 07/18/22 06:59 14:59 22:59 Intake Total 200 / 200 Output Total 200 / 200 Balance 0 / 0 Physical Exam Const: COMMON NORMALS: patient oriented x3 and alert GENERAL APPEARANCE: cooperative ORIENTATION/CONSCIOUSNESS: Yes awake HENMT: COMMON NORMALS: oropharynx normal Neck/C-Spine: COMMON NORMALS: no JVD Resp: COMMON NORMALS: normal respiratory effort AUSCULTATION: rhonchi Cardio: COMMON NORMALS: no JVD, regular rhythm, S1 normal heart sound present, S2 normal heart sound present and No murmurs present (Cardio) RHYTHM: regular rhythm HEART SOUNDS: S1 normal heart sound present and S2 normal heart sound present GI: COMMON NORMALS: Normal to inspection, nondistended, normoactive bowel sounds present, Soft to palpation and non-tender PALPATION: Yes Soft to palpation Extremity: COMMON NORMALS: no joint enlargement and no pedal edema Neuro: COMMON NORMALS: patient oriented x3 and moves all extremities SENSORIUM/ORIENTATION: Yes alert Skin: COMMON NORMALS: no rashes or lesions noted GENERAL SKIN EXAM: no rashes or lesions noted Data 07/18/22 08:21 07/17/22 05:30 Micro: Microbiology 07/15/22 21:16 Gram Stain - Final Sputum - Expectorated Sputum Sputum Culture - Final A&P Assessment and plan (1) Tachycardia: Resolved. Continue treatment of underlying conditions, disposition for PE, complete brief course of Levaquin for pneumonia. Follow-up with primary provider. We will sign off, call in case of any further questions. (2) Pulmonary embolism: Continue Eliquis. Will give outpatient prescription. Complete 7 days of 10 mg twice daily, then switch to 5 mg twice daily. Follow-up with primary provider. CBC results appreciated. Hemoglobin 14. Platelets 195. Echo results appreciated. As he is still coughing, adding Tessalon. (3) Pneumonia: Stop Levaquin after brief course of 5 days. Add flutter valve to assist with expectoration. (4) Alcohol withdrawal: Continue CIWA protocol Plan Suicidal ideation. Continue management with psychiatry. Attestations Medical Necessity Statement*: Continue management on neuropsychiatric unit for psychiatric conditions. Diagnoses Tachycardia R00.0 Pulmonary embolism I26.99 Pneumonia J18.9 Alcohol withdrawal F10.939
[2022-07-18] MEDS: trazodone 50 mg Tablet PO (22:10)
[2022-07-18] MEDS: docusate sodium 100 mg Capsule PO (22:10)
[2022-07-18] MEDS: hyDROXYzine 25 mg Capsule 50 MG PO (22:10)
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
[2022-07-19 08:00] VITALS: PULSE 90; RESP 16; O2SAT 93
--- NOTE | 2022-07-19 09:37 | DCPLANNER ---
IMM was printed and given to pt and right explained. A copy was placed in pts file.
[2022-07-19 09:45] VITALS: BP 157/89; PULSE 90; RESP 16; TEMP 36.6; O2SAT 93
[2022-07-19] MEDS: multivitamin therapeutic Tablet 1 TAB PO (11:12)
[2022-07-19] MEDS: apixaban 5 mg Tablet 10 MG PO (11:12)
[2022-07-19] MEDS: escitalopram 10 mg Tablet PO (11:12)
[2022-07-19] MEDS: thiamine 100 mg Tablet PO (11:13)
[2022-07-19] MEDS: gabapentin 300 mg Capsule 900 MG PO (11:13)
[2022-07-19] MEDS: guaiFENesin 600 mg Tablet PO (11:13)
[2022-07-19] MEDS: folic acid 1 mg Tablet PO (11:13)
== END 2022-07-19 11:25 | disposition home or self-care (01) | DRG 896 ==
LOC: ER 23:38 → NP 07-14 19:00 → MEDSURG 07-15 13:23 → NP 07-17 15:39
PROVIDERS: Internal Medicine; Student in an Organized Health Care Education/Training Program; Admitting Provider Psychiatry & Neurology Psychiatry; Emergency Provider Emergency Medicine; Visit Provider Psychiatry & Neurology Psychiatry
DX: F10.239 Alcohol dependence with withdrawal, unspecified (principal); I26.99 Other pulmonary embolism without acute cor pulmonale; S22.31XA Fracture of one rib, right side, initial encounter for closed fracture; R45.851 Suicidal ideations; F32.A Depression, unspecified; F10.229 Alcohol dependence with intoxication, unspecified; Y90.2 Blood alcohol level of 40-59 mg/100 ml; G62.1 Alcoholic polyneuropathy; Z81.8 Family history of other mental and behavioral disorders; G89.29 Other chronic pain; F17.210 Nicotine dependence, cigarettes, uncomplicated; F41.9 Anxiety disorder, unspecified; F12.90 Cannabis use, unspecified, uncomplicated; X58.XXXA Exposure to other specified factors, initial encounter; R00.0 Tachycardia, unspecified; E86.0 Dehydration
CPT/HCPCS: 36415; 71045; 71275; 80048; 80053; 80306; 80307; 81001; 83735; 84443; 85025; 85378; 87070; 87205; 87426; 87486; 87581; 87633; 93005; 93306; 94640; 96372; 97110; 97161; 97165; 97166; 97530; 97535; 99239; 99285; J1650; J1956; Q9967

== ENCOUNTER 2022-07-23 17:10 | Emergency (ER) | payer MEDICARE, SELFPAY ==
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
[2022-07-23 17:13] VITALS: BP 143/106; PULSE 94; RESP 16; O2SAT 98; BMI 34.5
[2022-07-23 17:17] VITALS: BP 146/99; PULSE 92; RESP 16; O2SAT 98
--- NOTE | 2022-07-23 17:21 | ECG_ITS ---
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 Measurements Intervals [place] Rate: 90 P: 58 VT: 149 QRS: 58 QRSD: 75 T: 79 QT: 349 QTc: 428 Interpretive Statements SINUS RHYTHM SEPTAL MYOCARDIAL INFARCTION , PROBABLY OLD [40+ ms Q WAVE IN V1/V2] Compared to ECG 07/15/2022 09:23:32 Myocardial infarct finding now present Sinus tachycardia no longer present Electronically Signed On 07-23-2022 18:19:19 SURVEY PROJECT MANAGER by Sriram Victor M.D. [email or web address]
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
[2022-07-23 18:17] VITALS: BP 136/89; PULSE 87; RESP 18; O2SAT 100
--- NOTE | 2022-07-30 12:59 | DCPLANNER ---
07.27.22 - patient called due to no primary care physician - no answer at this time 07.28.22 - patient called due to no primary care physician - no answer at this time
== END 2022-07-23 18:18 | disposition home or self-care (01) ==
PROVIDERS: Emergency Provider Family Medicine
DX: S22.39XA Fracture of one rib, unspecified side, initial encounter for closed fracture (principal); V89.2XXA Person injured in unspecified motor-vehicle accident, traffic, initial encounter; Z79.01 Long term (current) use of anticoagulants; F17.210 Nicotine dependence, cigarettes, uncomplicated
CPT/HCPCS: 71045; 93005; 99284